=== PATIENT | male | born 1965 | race African-American/Black ===

== ENCOUNTER 2017-07-04 23:33 | Emergency (ER) | payer OTHER ==
[~2017-07-04] VITALS: Ht 157.5 cm; Wt 100.0 kg
[2017-07-05 00:03] LABS: GLUCOSE,POINT OF CARE 81 MG/DL (70-110)
[2017-07-05] MEDS ORDERED: MUPIROCIN CALCIUM 2% 22 GM OINTMENT TP ONE (02:00)
[2017-07-05 02:56] VITALS: BP 133/82
== END 2017-07-05 03:03 | disposition home or self-care (01) ==
LOC: EMS 23:34
DX: S91.312A Laceration without foreign body, left foot, initial encounter (principal); S91.311A Laceration without foreign body, right foot, initial encounter; E11.9 Type 2 diabetes mellitus without complications; I10 Essential (primary) hypertension; F17.210 Nicotine dependence, cigarettes, uncomplicated; Z59.0 Homelessness; X58.XXXA Exposure to other specified factors, initial encounter; Y93.89 Activity, other specified; Y92.481 Parking lot as the place of occurrence of the external cause; Y99.8 Other external cause status
CPT/HCPCS: 12001; 82962; 99283